=== PATIENT | male | born 1980 ===

== ENCOUNTER 2019-12-31 11:35 | Emergency (ER) | payer BC ==
[2019-12-31] MEDS ORDERED: Octyl 2-Cyanoacrylate 1 Tube TOP ONE (12:34)
[2019-12-31] MEDS ORDERED: Diphtheria/Tetanus Toxoids,Adult (Td) 0.5 ML Syringe IM ONE (12:35)
--- NOTE | 2019-12-31 12:43 | EDM.PDOC ---
ED HPI GENERAL MEDICAL PROBLEM - General Chief Complaint: Laceration Stated Complaint: CUT R INDEX FINGER ON WIRE Time Seen by Provider: 12/31/19 11:41 - History of Present Illness INITIAL COMMENTS - FREE TEXT/NARRATIVE: History of present illness: [] The patient cut his finger on a wire 11:30 AM he has no other injury. His right index finger has a laceration. It is not very painful. It is hemostatic at this time. Review of systems: As per history of present illness and below otherwise all systems reviewed and negative. Past medical history: As per history of present illness and as reviewed below otherwise noncontrib utory. Surgical history: As per history of present illness and as reviewed below otherwise noncontributory. Social history: No reported history of drug or alcohol abuse. Family history: As per history of present illness and as reviewed below otherwise noncontributory. Physical exam: HEENT: Atraumatic, normocephalic, pupils reactive, negative for conjunctival pallor or scleral icterus, mucous membranes moist, throat clear, neck supple, nontender, trachea midline. Lungs: Clear to auscultation, breath sounds equal bilaterally, chest nontender. Heart: S1S2, regular, negative for clicks, rubs, or JVD. Abdomen: Soft, nondistended, nontender. Negative for masses or hepatosplenomegaly. Negative for costovertebral tenderness. Pelvis: Stable nontender. Genitourinary: Deferred. Rectal: Deferred. Extremities: Atraumatic, negative for cords or calf pain. Neurovascular unremarkable. Neuro: Awake, alert, oriented. Cranial nerves II through XII unremarkable. Cerebellum unremarkable. Motor and sensory unremarkable throughout. Exam nonfocal. Diagnostics: [] Therapeutics: Patient was irrigated and pressure applied then skin adhesive used to close. He received tetanus booster [] Impression: [] Aspiration right index finger Plan: [] Definitive disposition and diagnosis as appropriate pending reevaluation and review of above. Onset: Today Right Finger-Index Pain Score (Numeric/FACES): 8 - Related Data Allergies Allergy/AdvReac Type Severity Reaction Status Date / Time No Known Allergies Allergy Verified 12/31/19 12:02 Home Meds: Home Meds buPROPion HCL [Bupropion HCl Sr] 150 mg PO DAILY 12/31/19 [History] Past Medical History HEENT History: Reports: None Cardiovascular History: Reports: None Respiratory History: Reports: None Gastrointestinal History: Reports: None Genitourinary History: Reports: None Neurological History: Reports: None Psychiatric History: Reports: ADHD Endocrine/Metabolic History: Reports: None Hematologic History: Reports: None Immunologic History: Reports: None Oncologic (Cancer) History: Reports: None Dermatologic History: Reports: None - Past Surgical History Head Surgeries/Procedures: Reports: None Male Surgical History: Reports: None Musculoskeletal Surgical History: Reports: Other (See Below) Other Musculoskeletal Surgeries/Procedures:: lipoma removal on R shoulder Social & Family History - Tobacco Use Smoking Status *Q: Never Smoker Second Hand Smoke Exposure: No - Caffeine Use Caffeine Use: Reports: None - Recreational Drug Use Recreational Drug Use: No ED ROS GENERAL - Review of Systems Review Of Systems: Comprehensive ROS is negative, except as noted in HPI. ED EXAM, SKIN/RASH Exam: See Below Text/Narrative:: Included in the HPI ED SKIN PROCEDURES - Laceration/Wound Repair Right Digit - 2nd (Index) Closed with: Wound Adhesive Lac/Wound length In cm: 1 Course - Vital Signs Last Recorded V/S: Last Vital Signs Temp 98.2 F 12/31/19 12:06 Pulse 55 L 12/31/19 12:06 Resp 20 12/31/19 12:06 BP 138/104 H 12/31/19 12:06 Pulse Ox 98 12/31/19 12:06 - Orders/Labs/Meds Orders: Active Orders 24 hr Category Date Time Status Vaccines to be Administered [RC] PER UNIT ROUTINE Care 12/31/19 12:35 Active Meds: Medications Discontinued Medications Generic Name Dose Route Start Last Admin Trade Name Beckie PRN Reason Stop Dose Admin Diphtheria/Tetanus/Acell Pertussis 0.5 ml 12/31/19 12:44 12/31/19 12:44 Adacel IM 12/31/19 12:45 0.5 ml .ONCE ONE Administration Octyl Cyanoacrylate 1 applic 12/31/19 12:34 12/31/19 12:46 Dermabond Advance TOP 12/31/19 12:35 1 applic ONETIME ONE Administration Tetanus/Diphtheria Toxoids 0.5 ml 12/31/19 12:35 12/31/19 12:49 Tenivac IM 12/31/19 12:36 Not Given .ONCE ONE Departure - Departure Time of Disposition: 12:52 Disposition: Home, Self-Care 01 Condition: Good Clinical Impression: Laceration - Discharge Information *PRESCRIPTION DRUG MONITORING PROGRAM REVIEWED*: Not Applicable *COPY OF PRESCRIPTION DRUG MONITORING REPORT IN PATIENT BAO: Not Applicable Instructions: Sutures, Bock, or Adhesive Wound Closure, [id number] Referrals: Zhen Javier MD [Primary Care Provider] - Forms: ED Department Discharge Additional Instructions: [facility] [address] [address] [facility] [address] [place] [id number] The following information is given to patients seen in the emergency department who are being discharged to home. This information is to outline your options for follow-up care. We provide all patients seen in our emergency department with a follow-up referral. The need for follow-up, as well as the timing and circumstances, are variable depending upon the specifics of your emergency department visit. If you don't have a primary care physician on staff, we will provide you with a referral. We always advise you to contact your personal physician following an emergency department visit to inform them of the circumstance of the visit and for follow-up with them and/or the need for any referrals to a consulting specialist. The emergency department will also refer you to a specialist when appropriate. This referral assures that you have the opportunity for follow-up care with a specialist. All of these measure are taken in an effort to provide you with optimal care, which includes your follow-up. Under all circumstances we always encourage you to contact your private p hysician who remains a resource for coordinating your care. When calling for follow-up care, please make the office aware that this follow-up is from your recent emergency room visit. If for any reason you are refused follow-up, please contact the [facility] Emergency Department at and asked to speak to the emergency department charge nurse. Sepsis Event Note (ED) - Evaluation Sepsis Screening Result: No Definite Risk - Focused Exam Vital Signs: Vital Signs Temp Pulse Resp BP Pulse Ox 12/31/19 12:06 98.2 F 55 L 20 138/104 H 98 - My Orders Last 24 Hours: My Active Orders 12/31/19 12:35 Vaccines to be Administered [RC] PER UNIT ROUTINE - Assessment/Plan Last 24 Hours: My Active Orders 12/31/19 12:35 Vaccines to be Administered [RC] PER UNIT ROUTINE
[2019-12-31] MEDS ORDERED: Diphtheria,Pertussis(Acell),Tetanus Vaccine 0.5 ML Syringe IM ONE (12:44)
== END 2019-12-31 12:58 | disposition home or self-care (01) ==
LOC: MW.ED 11:35
DX: S61.210A Laceration without foreign body of right index finger without damage to nail, initial encounter (principal); Z79.899 Other long term (current) drug therapy; Z23 Encounter for immunization; W26.8XXA Contact with other sharp object(s), not elsewhere classified, initial encounter
CPT/HCPCS: 12001; 90471; 90715; 99282; A9270